=== PATIENT | female | born 1945 | race Caucasian/White ===

== ENCOUNTER 2018-12-22 07:46 | Emergency (ER) | payer MEDICARE, OTHER ==
[2018-12-22 08:02] VITALS: BP 171/86
--- NOTE | 2018-12-22 08:15 | UC ---
Bite Injury/Animal HPI - HPI Summary HPI Summary: Patient presents to urgent care with a tick on her right upper thigh. Patient states yesterday [place] and [place] herself following this. Patient states she's had ticks on her before but never embedded. Patient wasn' t sure to do so she came here. Patient is on Plaquenil for RA. Patient states her tetanus is up-to-date. Patient's medications reviewed this visit. - History of Current Complaint Chief Complaint: SILVIAkin Stated Complaint: TICK BITE Time Seen by Provider: 12/22/18 08:10 Hx Obtained From: Patient ?: No Pain Intensity: 0 Pain Scale Used: 0-10 Numeric - Allergies/Home Medications Allergies/Adverse Reactions: Allergies Allergy/AdvReac Type Severity Reaction Status Date / Time acetaminophen [From Percocet] Allergy GI Upset Verified 12/22/18 08:03 oxycodone [From Percocet] Allergy GI Upset Verified 12/22/18 08:03 Penicillins Allergy Rash Verified 12/22/18 08:02 Home Medications: Home Medications Alendronate Sodium 1 unit IM WEEKLY 12/22/18 [History Confirmed 12/22/18] Brimonidine 0.15%-Dorzolam 2% 1 bar DAILY 12/22/18 [History Confirmed 12/22/18] Dorzolamide 2% OPTH (NF) [Trusopt 2% OPTH (NF)] 1 % DAILY 12/22/18 [History Confirmed 12/22/18] Hydroxychloroquine TAB* [Plaquenil TAB*] 1 tab PO DAILY 12/22/18 [History Confirmed 12/22/18] Levothyroxine Sodium [Levoxyl] 1 tab PO DAILY 12/22/18 [History Confirmed ] PMH/Surg Hx/FS Hx/Imm Hx Previously Healthy: No - RA on immunosuppressant - Surgical History Surgical History: Yes Surgery Procedure, Year, and Place: tubal - Family History Known Family History: Positive: Non-Contributory - Social History Occupation: Retired Lives: With Family Alcohol Use: Rare Substance Use Type: None Smoking Status (MU): Former Smoker Review of Systems All Other Systems Reviewed And Are Negative: Yes Skin: Positive: Other - tick right thigh Physical Exam - Summary Physical Exam Summary: Vital Signs Reviewed: Yes A+Ox3, no distress Eyes: Conjunctiva Clear ENT: Hearing grossly normal neck: supple Respiratory: Positive: No respiratory distress, No accessory muscle use Cardiovascular: skin color reflect adequate perfusion Musculoskeletal Exam: TAVARES x 4 without difficulty Neurological: Positive: Alert, ambulatory without difficulty Psychological: Positive: Normal Response To Family Skin: Positive: no rash, no ecchymosis right anterior proximal thigh- pt with embedded tick, not engorged, alive Triage Information Reviewed: Yes Vital Signs: Initial Vital Signs Temp 98.4 F 12/22/18 07:56 Pulse 89 12/22/18 07:56 Resp 17 12/22/18 07:56 BP 171/86 12/22/18 07:56 Pulse Ox 99 12/22/18 07:56 Bite Injury Course/Dx - Course Course Of Treatment: pt presents with embedded tick right anterior prox thigh. easily removed intact with tick twister - demonstrated technique with pt reviewed CDC guidelines Pt with h/o RA on plaquenil- pt requesting prophylaxis dose given here return precautions pt in agreement with plan BP elevated -recommended PCP f/u - Differential Dx/Diagnosis Provider Diagnosis: Tick bite Discharge - Sign-Out/Discharge Documenting (check all that apply): Patient Departure All imaging exams completed and their final reports reviewed: No Studies - Discharge Plan Condition: Stable Disposition: HOME Referrals: Regino Guerrero MD [Primary Care Provider] - Additional Instructions: Keep area clean and dry Check yourself daily for ticks after you have been working in [place] Contact your doctor or return with questions or concerns Approach to prophylaxis : According to the Infectious Diseases Society of [place] (IDSA) guidelines that recommend antibiotic prophylaxis only in patients who meet all of the following criteria: 1. Attached tick identified as an adult or nymphal I. scapularis tick (deer tick). 2. Tick is estimated to have been attached for 36 hours (by degree of engorgement or time of exposure). 3. Prophylaxis is begun within 72 hours of tick removal. Local rate of infection of ticks with B. burgdorferi is 20 percent if attached for over 48 hours (these rates of infection have been shown to occur in parts of [place], parts of the [facility], and parts of [place] and [place]). If you experience a tick and time of attachment is believed to be less than 36 hours, you may remove the tick with head intact and no need for prophylaxis. If over 36 hours, please come into UC. Prophylactic doxycycline is not recommended for ticks attached less than 36 hours. - Billing Disposition and Condition Condition: STABLE Disposition: Home
[2018-12-22] MEDS ORDERED: DOXYcycline CAP(*) 100 MG PO ONE (08:36)
== END 2018-12-22 08:50 | disposition home or self-care (01) ==
LOC: UCEAST 07:46
DX: S70.361A Insect bite (nonvenomous), right thigh, initial encounter (principal); Z88.8 Allergy status to other drugs, medicaments and biological substances; Z88.5 Allergy status to narcotic agent; Z88.0 Allergy status to penicillin; Z87.891 Personal history of nicotine dependence; W57.XXXA Bitten or stung by nonvenomous insect and other nonvenomous arthropods, initial encounter; Y92.9 Unspecified place or not applicable
CPT/HCPCS: 99212; A9270-GY; G0463